=== PATIENT | male | born 1970 | race Caucasian/White ===

== ENCOUNTER 2018-10-16 07:48 | Day surgery (SDC) | payer OTHER ==
[2018-10-08 15:48] VITALS: BMI 25.6
[2018-10-16] MEDS ORDERED: oxyCODONE HCL 5 MG TABLET PO PRN (09:10)
[2018-10-16] MEDS ORDERED: ONDANSETRON 4 MG/2 ML VIAL IVPUSH PRN (09:10)
[2018-10-16] MEDS ORDERED: PROPOFOL 20 ML ONE ×3 (09:14→09:15)
[2018-10-16] MEDS ORDERED: MIDAZOLAM HCL 2 MG/2 ML SINGLE DOSE VIAL ONE (09:15)
[2018-10-16] MEDS ORDERED: LACTATED RINGERS SOLUTION 1,000 ML IV SCH (09:15)
--- NOTE | 2018-10-16 09:17 | HP ---
History & Physical Update - History History: No Change - Physical Physical: No Change - Assessment Assessment: No Change - Plan Plan: No Change (Plan for open L inguinal hernia repair. No change since preop visit. No h/o DVt/PE.)
[2018-10-16] MEDS ORDERED: BUPIVACAINE HCL/PF 0.5% (5MG/ML) 10 ML VIAL ONE (09:28)
[2018-10-16] MEDS ORDERED: LIDOCAINE HCL 1%, 10 MG/ML (20ML VIAL) ONE (09:40)
[2018-10-16] MEDS ORDERED: ceFAZolin SODIUM 1 GM VIAL IVPB ONE (09:45)
[2018-10-16] MEDS ORDERED: DEXAMETHASONE SOD PHOSPHATE 4 MG/1 ML VIAL ONE (09:48)
[2018-10-16] MEDS ORDERED: ceFAZolin SODIUM 1 GM VIAL ONE (09:48)
[2018-10-16] MEDS ORDERED: LIDOCAINE HCL 1%, 10 MG/ML (20ML VIAL) NR ONE (09:50)
[2018-10-16] MEDS ORDERED: fentaNYL CITRATE 250 MCG/5 ML VIAL ONE (09:59)
--- NOTE | 2018-10-16 10:59 | OP ---
Operative Note - Note: Operative Date: 10/16/18 Pre-Operative Diagnosis: left inguinal hernia Operation: repair left inguinal hernia w/mesh Findings: indirect LIH and weak floor Post-Operative Diagnosis: Same as Pre-op Surgeon: Benjamin Jiménez Anesthesiologist/LEACH RUNNER: Shanta Seals Anesthesia: General Specimens Removed: hernia sac Estimated Blood Loss (mls): 5
--- NOTE | 2018-10-16 11:03 | SURG ---
Surgery Service Desk Specialist Note Service Desk Specialist: Bree Varela PA-C (Suzy) Date of Service: 10/16/18 Diagnosis: Left inguinal hernia Procedure: Left inguinal hernia repair with mesh I was present for the entirety of the operative procedure. For further detail, please refer to operative report.
[2018-10-16] MEDS: oxyCODONE HCL 5 MG TABLET PO PRN ×2 (13:37→14:15)
[2018-10-16] MEDS ORDERED: oxyCODONE HCL 5 MG TABLET ONE ×2 (13:39→14:11)
[2018-10-16 15:11] VITALS: BP 130/78; PULSE 94; TEMP 98.5
--- NOTE | 2018-10-17 10:01 | OP ---
DATE OF OPERATION: 10/16/2018 PREOPERATIVE DIAGNOSIS: Left inguinal hernia. POSTOPERATIVE DIAGNOSIS: Left inguinal hernia. PROCEDURE: Repair of left inguinal hernia with mesh. SURGEON: Benjamin Jiménez MD THRESHING MACHINE OPERATOR: Kristina Varela PA-C ANESTHESIA: General. OPERATIVE FINDINGS: There was an indirect left inguinal hernia with a weak attenuated floor. The rest of the findings were unremarkable. PROCEDURE: The patient was placed on the operating room table in supine position and after the induction of general anesthesia. The patient's left groin was prepped with ChloraPrep and draped in sterile fashion. A timeout was taken, and a left groin incision made using the scalpel. This was taken down through skin and subcutaneous tissue and Darinel fascia to the external oblique fascia which was divided proximally and distal in the direction of its fibers into the external ring. The cord structures and nerve were elevated to the level of the pelvic tubercle and a Ludwig drain placed around them for retraction and identification purposes. The previously noted findings were observed and dissection begun in the cord which identified the indirect sac. This was dissected up to the internal ring where the sac was ligated with 2-0 Vicryl suture, and redundant sac was excised and sent for pathological examination. Next the floor of the inguinal canal was repaired by fastening a piece of ProGrip mesh into the inguinal canal and anchoring it with 2-0 Prolene to the pubic tubercle conjoint tendon and the shelving edge of the inguinal ligament. A keyhole was created for the cord structures and the tails of the mesh brought above the level of the internal ring and crossed and anchored above the internal ring with interrupted 2-0 Prolene. Hemostasis was checked for and noted to be good, and adequate keyhole was noted for the cord structures. The cord structures and nerve were returned to the normal anatomic position, and copious irrigation carried out with normal saline. Hemostasis was again verified, and then the external oblique fascia was closed using continuous 2-0 Vicryl recreating the external ring. Darinel fascia was reapproximated with interrupted 2-0 Vicryl, the deep dermis with interrupted 3-0 Vicryl, and the skin edges with 4-0 Monocryl in a subcuticular continuous. Steri-Strips and dry sterile dressings were placed. Procedure terminated at this point, and the patient aroused from general anesthesia and transferred to the postanesthesia care unit in stable condition awake and alert. ESTIMATED BLOOD LOSS: Minimal. DRAINS: None. SPECIMENS: Hernia sac to Pathology. I, Benjamin Jiménez MD, was physically present in the operating room from the time the patient was placed on the operating room table until he was transferred to the postanesthesia care unit in my accompaniment. MD RANDI Matthews/[id number] MTDD
--- NOTE | 2018-10-17 17:22 | PATH ---
Surgical Pathology Report Patient Name: FLOR MIKE [facility]. Rec. #: [id number] /Age/Gender: 1970 (Age: 47) / M Account: [id number] Location: [facility] SURGICAL Taken: 10/16/2018 Received: 10/16/2018 Reported: 10/17/2018 Physicians: Benjamin Jiménez MD Specimen(s) Received LEFT INGUINAL HERNIA SAC Clinical History Left inguinal hernia Final Diagnosis INGUINAL HERNIA SAC, LEFT, REPAIR: HERNIA SAC. Electronically Signed Meenakshi Zambrano M.D. Gross Description Received in formalin labeled "left inguinal hernia sac," is a 3.0 x 1.6 x 0.8 cm vinson-pink portion of fibromembranous tissue with minimal attached fat, consistent with a hernia sac. Easement Worker sections are submitted in one cassette. /10/16/201810/16/2018
== END 2018-10-16 15:00 | disposition home or self-care (01) ==
LOC: JASU-SURG 07:48
PROVIDERS: ATTEND Surgery
PROC: 0YU60JZ Supplement Left Inguinal Region with Synthetic Substitute, Open Approach (ICD-10-PCS; principal; 2018-10-16 09:00)
DX: K40.90 Unilateral inguinal hernia, without obstruction or gangrene, not specified as recurrent (principal)
CPT/HCPCS: 88302-TC; 94760